=== PATIENT | male | born 1985 | race Caucasian/White ===

== ENCOUNTER 2021-07-07 10:02 | Emergency (ER) | payer OTHER, SELFPAY ==
--- NOTE | ~2021-07-07 | XR_ITS ---
EXAMINATION: XR HAND, LEFT CLINICAL INFORMATION: Trauma fifth digit. COMPARISON: None TECHNIQUE: PA, lateral, and oblique views of the left hand. FINDINGS: There is no acute or healing fracture, dislocation, or destructive process. There is flexion at the fifth finger DIP joint with associated degenerative changes. No focal soft tissue swelling. No erosive change. XR/XR hand LT min 3V IMPRESSION: -Flexion fifth finger DIP joint with degenerative changes. -No fracture, dislocation, or erosive changes.
[2021-07-07 10:22] VITALS: BP 106/65; PULSE 75; RESP 18; TEMP 36.6; O2SAT 97; BMI 25.2
--- NOTE | 2021-07-07 12:05 | ED_ITS ---
HPI - Extremity Injury (Upper) General Chief Complaint: Extremity Injury, Upper Stated Complaint: Finger inj Time Seen by Provider: 07/07/21 11:59 Source: patient and family (Spouse ) Mode of arrival: ambulatory Limitations: language barrier (Malian Speaking ) History of Present Illness complaint: injury to: finger (Little finger) Onset (ago): day(s) (Occurred yesterday) Other injuries: none Place: work Severity: mild Relieving factors: none Exacerbating factors: movement of extremity Context: other (Reports his finger bent backward at work yesterday) Associated symptoms: denies other symptoms Treatments prior to arrival: splint (Finger splint) Related Data Allergies Allergy/AdvReac Type Severity Reaction Status Date / Time SEAFOOD Allergy Unknown SWELLING Uncoded 11/16/19 16:40 Review of Systems Review of Systems: Constitutional : No Weight loss, No Fever, No Chills, No Night Sweats, No Fatigue, No Malaise ENT/Mouth : No Hearing loss, No Ear Pain, No Nasal Congestion, No Sinus Pain, No Hoarseness, No sore throat, No Rhinorrhea, No Swallowing Difficulty Eyes: No Eye Pain, No Swelling, No Redness, No Foreign Body, No Discharge, No Vision Changes Cardiovascular : No Chest Pain, No SOB, No Dyspnea on Exertion, No Orthopnea, No Edema, No Palpitations Respiratory : No Cough, No Sputum, No Wheezing, No Smoke Exposure, No Dyspnea Gastrointestinal : No Nausea, No Vomiting, No Diarrhea, No Constipation, No abdominal Pain, No Hematochezia, No Melena Genitourinary : no irregular bleeding, No Dysuria, No Urinary Frequency, No Hematuria, No Urinary Incontinence, No Urgency, No Flank Pain, No Urinary Flow Changes, No Hesitancy Musculoskeletal : + left little finger joint pain, No Myalgias, No Joint Swelling Skin : No Skin Lesions, No rash Neuro : No Weakness, No Numbness, No Paresthesias, No Loss of Consciousness, No Dizziness, No Headache Psych : No Anxiety/Panic, No Depression, No SI/HI/AH/VH, No Social Issues, Heme/Lymph: No Bruising, No Bleeding,No Lymphadenopathy Endocrine : No Polyuria, No Polydipsia, No Temperature Intolerance Yes all other systems are reviewed and are negative [facility] Past Medical History Attestation statement: The following information was validated with the patient. Social History Social History Advance Directives: No Advance Directives Information Provided: No Physical Exam Vital Signs: Vital Signs: Last Vital Signs Temp 97.8 F 07/07/21 10:22 Pulse 75 07/07/21 10:22 Resp 18 07/07/21 10:22 BP 106/65 07/07/21 10:22 Pulse Ox 97 07/07/21 10:22 BMI result Body Mass Index 25.2 vital signs have been reviewed as normal and appeared to be correct. Blood pressure normal Heart rate normal. Respiration rate normal. Temperature normal. Oxygen saturation normal. Appearance: Alert. Oriented X3. No acute distress. Head: Normal external exam. Normocephalic. Atraumatic. Eyes: PERRLA. EOMI. Conjunctiva and sclera normal. Eyelids normal. ENT: Pharynx normal. Uvula midline. Moist mucous membranes. Neck: Normal inspection. Neck supple. FROM. CVS: Normal heart rate and rhythm. Respiratory: No respiratory distress. Painless inspiration. Skin: Skin warm and dry. Normal skin color. Normal skin turgor. No rashes/lesions/lacerations noted. Extremities: To left hand little finger at the distal aspect patient has flexion of the D IP consistent with mallet finger. Otherwise no other obvious ligamentous or tendon injury noted to the rest of the hand/finger/wrist joint. He has full range of motion of all other joints/extremities and all other extremities are nontender. Neuro: Oriented X 3. No motor deficit. No sensory deficit. Reflexes normal. Normal steady gait. No focal neuro deficits noted. Vascular: + radial pulses/+ 2 distal pedal pulses/+2 dorsalis pedis b/l. Normal cap refill. No cyanosis noted to upper extremity nails and lower extremity toes nails. Course Course Course Narrative: X-ray revealed flexion of 5th finger DI P with degenerative changes otherwise no other acute processes. Will place in a finger splint treat symptomatic and instructed follow-up with orthopedics and to return if any new or worsening symptoms. Patient understands agrees with this plan. MDM - Extremity Injury (Upper) Medical Records Attestation: I reviewed the patient's medical records. Imaging Data Left hand x-ray: Attestation: I personally reviewed and interpreted this imaging study as follows: Radiologist's impression: FINDINGS: There is no acute or healing fracture, dislocation, or destructive process. There is flexion at the fifth finger DIP joint with associated degenerative changes. No focal soft tissue swelling. No erosive change. ? XR/XR hand LT min 3V IMPRESSION: -Flexion fifth finger DIP joint with degenerative changes. -No fracture, dislocation, or erosive changes. Discharge Plan Discharge Clinical Impression: Mallet deformity of left little finger Patient Disposition: Home, Self-Care Instructions: Jammed Finger (ED), Tendon Repair (DC) Referrals: Arminda Thomas MD [Physician] - 2 weeks (Call today to make a follow-up appointment within the next 2 weeks) Print Language: Malian
== END 2021-07-07 12:14 | disposition home or self-care (01) ==
PROVIDERS: Emergency Provider Emergency Medicine
DX: M20.012 Mallet finger of left finger(s) (principal)
CPT/HCPCS: 73130; 99283

== ENCOUNTER → 2021-07-14 10:34 | Outpatient (BNVA) | payer OTHER, SELFPAY | PROVIDERS: PCP Physician Assistant; Visit Provider Physician Assistant | DX: M20.012 Mallet finger of left finger(s) (principal) ==

== ENCOUNTER 2021-11-17 10:18 | Outpatient (REF) | payer OTHER, SELFPAY ==
--- NOTE | ~2021-11-17 | XR_ITS ---
EXAMINATION: XR LUMBOSACRAL SPINE CLINICAL INFORMATION: Low back pain COMPARISON: None TECHNIQUE: Three views of the lumbosacral spine. FINDINGS: There is normal lumbar lordosis. The vertebral heights, alignment and disc heights are normal. No visible acute fracture, dislocation or lytic process seen. The paravertebral soft tissues are normal. XR/XR lumbar spine 2-3V IMPRESSION: Unremarkable lumbar spine examination.
[2021-11-17 10:56] LABS: Hematocrit 46.2 % (42.0-52.0); Hemoglobin 15.5 g/dl (14.0-18.0); Mean Corpuscular HGB Conc 33.5 g/dl (31.0-36.0); Mean Corpuscular Hemoglobin 30.8 pg (27.0-33.0); Mean Corpuscular Volume 91.8 fL (80.0-98.0); Mean Platelet Volume 11.2 fL (9.4-12.4); Platelet Count 187 X10*3/uL (160-400); Red Blood Count 5.03 X10*6/uL (4.60-5.80); White Blood Count 9.3 X10*3/uL (4.8-10.8)
[2021-11-17 11:27] LABS: Alanine Aminotransferase 20 U/L (0-40); Albumin Level 4.2 g/dL (3.5-5.0); Alkaline Phosphatase 99 U/L (39-117); Anion Gap 14 (12-20); Aspartate Amino Transferase 15 U/L (5-37); Bilirubin Total 0.8 mg/dL (0.0-1.0); Blood Urea Nitrogen 17 mg/dL (9-16); Calcium 9.2 mg/dL (8.4-10.2); Carbon Dioxide 23 mmol/L (22-29); Chloride 105 mmol/L (96-108); Cholesterol 175 mg/dL; Estimated Glomerular Filt Rate > 60; Glucose Fasting 96 mg/dL (60-99); HDL Cholesterol 34 mg/dL; LDL Cholesterol Calculated 111 mg/dl; Potassium 4.3 mmol/L (3.3-5.1); Sodium 138 mmol/L (135-145); Total Protein 7.8 g/dL (6.5-8.0); Triglycerides 151 mg/dL
[2021-11-17 11:53] LABS: TSH reflex Free T4 1.52 uIU/mL (0.32-4.0)
[2021-11-19 12:21] LABS: Anti DNA DS Antibody <1 IU/mL
[2021-11-20 12:52] LABS: DRVVT 1:1 Mix Interpretation Not Indicated; PTT (LAC) Screen 40 sec (<=40)
[2021-11-20 13:32] LABS: Anti Nuclear Antibody Screen NEGATIVE (NEGATIVE)
== END 2021-11-17 10:19 | disposition home or self-care (01) ==
LOC: HO.LAB 10:18
PROVIDERS: PCP Physician Assistant; Visit Provider Physician Assistant
DX: Z13.29 Encounter for screening for other suspected endocrine disorder (principal); Z13.220 Encounter for screening for lipoid disorders; M54.50 Low back pain, unspecified; Z84.0 Family history of diseases of the skin and subcutaneous tissue
CPT/HCPCS: 36415; 72100; 80053; 80061; 84443; 85027; 85597; 85613; 85730; 86038; 86039; 86225

== ENCOUNTER 2022-01-08 11:05 | Emergency (ER) | payer OTHER, SELFPAY ==
--- NOTE | ~2022-01-08 | CT_ITS ---
EXAMINATION: CT CHEST WITHOUT CONTRAST CLINICAL INFORMATION: Status post work-related injury welding. COMPARISON: None TECHNIQUE: Multidetector volumetric CT imaging of the chest was done. Axial MIP volume rendering provided. Sagittal and coronal reformatted images were obtained. This CT examination was performed using dose optimization techniques as appropriate, variously including the following: *Automated exposure control *Adjustment of mA and/or kV according to patient size (this includes techniques or standardized protocols for targeted exams where dose is matched to indication/reason for exam; i.e. extremities or head) *Use of iterative reconstruction technique DLP: 1859 mGy-cm FINDINGS: FACULTY I ON CALL MEDICAL ASSISTANT: Unremarkable. LUNGS: The lungs are well expanded and clear of acute pneumonic process. There is a 4 mm calcified nodule right upper lobe axial image 208/27. No additional pulmonary nodule, mass or ground-glass density seen. MEDIASTINUM: The thyroid lobes are symmetric and normal. The central trachea and bronchi are widely patent. The heart size and the great vessels are normal caliber. There is no pericardial effusion. Small shotty lymph nodes seen in para-aortic space. There is residual thymus in the anterior mediastinum.. CORONARY ARTERY CALCIFICATION: None visualized on this study. PLEURA: There is no pleural effusion. No pleural mass or thickening. AXILLA: No lymphadenopathy. UPPER ABDOMEN: Visualized liver, spleen, pancreas and bilateral adrenal glands unremarkable. OSSEOUS STRUCTURES: No aggressive lytic or sclerotic process seen. CT/CT chest wo IV con IMPRESSION: 1. A 4 mm calcified nodule right upper lobe. No additional pulmonary nodules seen. No parenchymal consolidation or atelectasis. 2. No abnormal mediastinal or axillary lymphadenopathy. Fleischner guidelines were followed.
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
[2022-01-08 11:11] VITALS: BP 130/75; PULSE 78; O2SAT 97
[2022-01-08 11:13] VITALS: BP 132/75; PULSE 82; RESP 16; TEMP 36.9; O2SAT 98; BMI 25.9
[2022-01-08 11:57] LABS: MANUAL DIFF FLAG NO
[2022-01-08] MEDS: 0.9 % Sodium Chloride 1,000 ML 999 ML IVCONT (11:59)
[2022-01-08 12:00] LABS: Basophils Percent Auto 0.4 % (0-2); Eosinophils Absolute Auto 0.2 X10*3/uL (0.0-0.4); Eosinophils Percent Auto 1.8 % (0-4); Hemoglobin 15.6 g/dl (14.0-18.0); Imm Gran Abs Auto 0.04 X10*3/uL (0.00-0.03); Imm Gran Pct Auto 0.4 % (0.0-0.4); Lymphocytes Absolute Auto 1.9 X10*3/uL (1.2-4.9); Lymphocytes Percent Auto 20.7 % (20-40); Mean Corpuscular HGB Conc 33.9 g/dl (31.0-36.0); Mean Corpuscular Hemoglobin 31.1 pg (27.0-33.0); Mean Corpuscular Volume 91.6 fL (80.0-98.0); Mean Platelet Volume 10.8 fL (9.4-12.4); Monocytes Absolute Auto 0.6 X10*3/uL (0.1-1.2); Monocytes Percent Auto 6.5 % (2-11); Neutrophils Absolute Auto 6.3 x10*3/uL (2.0-8.3); Neutrophils Percent Auto 70.2 % (45-73); Platelet Count 236 X10*3/uL (160-400); Red Blood Count 5.02 X10*6/uL (4.60-5.80); Red Cell Distribution Width 12.8 % (11.0-16.0)
[2022-01-08 12:02] LABS: Carbon Monoxide POC 0.4 %
[2022-01-08 12:02] LABS: Carbon Monoxide Refer to POC result
[2022-01-08 12:56] LABS: Alanine Aminotransferase 22 U/L (0-40); Albumin Level 4.2 g/dL (3.5-5.0); Alkaline Phosphatase 100 U/L (39-117); Anion Gap 14 (12-20); Aspartate Amino Transferase 20 U/L (5-37); Bilirubin Total 0.7 mg/dL (0.0-1.0); Blood Urea Nitrogen 16 mg/dL (9-16); Calcium 9.6 mg/dL (8.4-10.2); Carbon Dioxide 27 mmol/L (22-29); Chloride 105 mmol/L (96-108); Creatinine Clr Calc Pharmacy 90.9; Estimated Glomerular Filt Rate > 60; Glucose Random 95 mg/dL (60-115); Magnesium 2.2 mg/dL (1.6-2.6); Potassium 4.4 mmol/L (3.3-5.1); Sodium 142 mmol/L (135-145); Total Protein 7.8 g/dL (6.5-8.0)
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
--- NOTE | 2022-01-08 16:25 | PC.NURSE ---
additional call to ct dept to request reading of head ct, Katy fields f/u
[2022-01-08 17:20] LABS: Prothrombin Time 11.2 SEC (10.0-13.1)
== END 2022-01-08 17:20 | disposition home or self-care (01) ==
PROVIDERS: Physician Assistant Medical; Emergency Provider Emergency Medicine Emergency Medical Services; PCP Physician Assistant
DX: Z04.2 Encounter for examination and observation following work accident (principal); T59.811A Toxic effect of smoke, accidental (unintentional), initial encounter; Y92.59 Other trade areas as the place of occurrence of the external cause; R10.11 Right upper quadrant pain; K59.00 Constipation, unspecified; N20.0 Calculus of kidney; R91.1 Solitary pulmonary nodule
CPT/HCPCS: 36415; 70450; 71250; 72125; 74176; 80053; 82375; 83735; 85025; 85610; 96360; 96361; 99284

== ENCOUNTER 2022-03-06 10:55 | Outpatient (REF) | payer OTHER, SELFPAY ==
--- NOTE | 2022-03-06 14:41 | PFT_ITS ---
INDICATION: Asthma. SPIROMETRY: FEV1 to FVC of 84% with an FEV1 of 2.85 L, which is 99% predicted and FVC 4.58 L, which is 95% predicted. No significant response to bronchodilator is noted. Maximum voluntary ventilation 92% predicted. LUNG VOLUMES: Total lung capacity 88% predicted. DIFFUSION CAPACITY: DLCO 99% predicted. COMPARISON: None. INTERPRETATION: No obstructive nor restrictive ventilatory defects identified. No significant response to bronchodilators noted. Normal maximum voluntary ventilation. Lung volumes are low normal and normal diffusion capacity. If asthma is in the differential, methacholine challenge may be helpful in assessing for hyper-reactive airways, otherwise clinical correlation warranted. Curt Yeh MD MR/MODL / [id number]
== END 2022-03-06 10:56 | disposition home or self-care (01) ==
LOC: HO.RESP 10:55
PROVIDERS: PCP Physician Assistant; Visit Provider Internal Medicine Pulmonary Disease
DX: J45.909 Unspecified asthma, uncomplicated (principal)
CPT/HCPCS: 94060; 94727; 94729

== ENCOUNTER → 2022-03-20 14:25 | Outpatient (BNVA) | payer OTHER, SELFPAY | PROVIDERS: PCP Physician Assistant; Visit Provider Nurse Practitioner Family | DX: Z13.89 Encounter for screening for other disorder (principal) ==

== ENCOUNTER → 2022-03-25 15:34 | Outpatient (BNVA) | payer OTHER, SELFPAY | PROVIDERS: PCP Physician Assistant; Visit Provider Internal Medicine Pulmonary Disease | DX: Z13.89 Encounter for screening for other disorder (principal) ==